=== PATIENT | female | born 1995 | race Caucasian/White ===

== ENCOUNTER 2017-01-14 20:02 | Emergency (ER) | payer OTHER ==
[~2017-01-14] VITALS: Ht 144.8 cm; Wt 72.6 kg
[2017-01-14 20:32] VITALS: BP 116/72
--- NOTE | 2017-01-14 21:26 | NUR ---
PT TAKEN TO ULTRASOUND FROM [facility]
--- NOTE | 2017-01-14 22:06 | NUR ---
PT TAKEN TO BED 5
--- NOTE | 2017-01-14 22:06 | NUR ---
PATIENT PRESENTS TO ED WITH SHARP AB PAIN SINCE 1500 01/14/17. PT STATES NO TRAUMA TO THE AREA .PT STATES SHE IS AND HAS BEEN VOMITING FOR 2 WEEKS ; SKIN IS PINK/WARM/DRY; AAOX4 WITH EVEN AND STEADY GAIT; LUNGS CLEAR BL; HR EVEN AND REGULAR; PT DENIES ANY FEVER, CP, SOB, OR COUGH AT THIS TIME; PATIENT STATES PAIN OF 4/10 AT THIS TIME; VSS; PATIENT POSITIONED FOR COMFORT; HOB ELEVATED; BEDRAILS UP X2; BED DOWN. ER MD MADE AWARE OF PT STATUS.
--- NOTE | 2017-01-14 22:42 | NUR ---
Dr. Rivera evaluating patient at bedside.
[2017-01-14] MEDS ORDERED: ACETAMINOPHEN EXTRA STRENGTH 500 MG TAB PO ONE (22:50)
[2017-01-15 01:12] VITALS: BP 112/75
--- NOTE | 2017-01-15 01:12 | NUR ---
Patient discharged with v/s stable. Written and verbal after care instructions given and explained. Patient alert, oriented and verbalized understanding of instructions. Ambulatory with steady gait. All questions addressed prior to discharge. ID band removed. Patient advised to follow up with PMD. Rx oF TYLENOL 500MG AND MACROBID 100MG given. Patient educated on indication of medication including possible reaction and side effects. Opportunity to ask questions provided and answered.
== END 2017-01-15 01:12 | disposition home or self-care (01) ==
LOC: MED 20:02
DX: O20.0 Threatened abortion (principal); O23.41 Unspecified infection of urinary tract in pregnancy, first trimester; Z3A.01 Less than 8 weeks gestation of pregnancy